=== PATIENT | male | born 1935 | race Caucasian/White ===

== ENCOUNTER 2016-11-17 20:54 | Inpatient (IN) ==
--- NOTE | 2016-11-17 21:57 | Emergency Department Note ---
Marcus Ny Rolonda, am scribing for, and in the presence of, Lexa Osborne MD 21:55. Dylon Ny Charles R, MD, personally performed the services described in this documentation, ascribed by Cindy Velazquez in my presence, and it is both accurate and complete . Arrival - Arrival Chief Complaint: Extremity Problem ED Nursing Triage Note: Pt arrives via ems from home with complaints of right knee swelling and pain that started Monday. Pt denies any injury. Knee is warm to touch and pt is unable to bear weight on ext. States that Dr. Cordoba started him on Bactrim but he has not seen him. + pulse noted to ext. + sensory/motor function. + 4 pitting edema bilat. ext. Mode of Arrival: Stretcher Limitations: No Limitations Source: Patient, Old Records Reviewed, RN Notes Reviewed Time Seen by Provider: 11/17/16 21:35 - History of Present Illness HPI Narrative: Pt is a 81 y/o male who presents to the ED via EMS for further evaluation of right knee pain with an onset of x4 days. Pt has a PMHx of cardiovascular problems. He states that he normally sleeps on his right side and when he awakened Monday morning he had right knee pain. He states that he tried to walk and was unsuccessful and had to pick his leg up with his hand due to his leg feeling heavy. Pt states that the bruising began this afternoon. He denies injury to the knee but confirms that he is taking Coumadin and Bactrim. No other complaint/pain in ED. Onset (ago): day(s) Consistency: constant Severity: mild, moderate Severity scale (1-10): 5 Allergies/Adverse Reactions: Allergies Allergy/AdvReac Type Severity Reaction Status Date / Time prednisone Allergy Mild hallucinati Verified 10/27/14 12:06 on Home Medications: Home Medications Medication Instructions Recorded Confirmed Type Ascorbic Acid Tab [Vitamin C Tab] 1,000 mg PO DAILY 10/27/14 11/17/16 History Diltiazem HCl [Cardizem LA] 360 mg PO DAILY 10/27/14 11/17/16 History Magnesium Oxide [Magnesium] 400 mg PO DAILY 10/27/14 11/17/16 History Metoprolol Succinate Xl [Toprol Xl] 12.5 mg PO DAILY 10/27/14 11/17/16 History Multivitamin [One Daily] 1 each PO DAILY 10/27/14 11/17/16 History Triamterene/Hydrochlorothiazid 1 each PO DAILY 10/27/14 11/17/16 History [Triamterene-Hctz 37.5-25 mg Cp] Warfarin [Coumadin] 5 mg PO DIRECTED 10/27/14 11/17/16 History Cetirizine HCl [ZyrTEC Cap] 10 mg PO DAILY 11/12/14 11/17/16 History Warfarin [Coumadin] 2.5 mg PO DIRECTED 11/12/14 11/17/16 History HYDROcodone/ACETAMIN 7.5-325 1 - 2 tablet PO Q4H PRN #60 tablet 11/16/14 Rx [[place] 7.5-325] Review of System - Review of System 12 point system: reviewed and no additional remarkable complaints except as stated - Review of System Constitutional: Absent: chills Eyes: Absent: discharge Head/Ears/Nose/Throat: Absent: earache Respiratory: Absent: cough Cardiovascular: Absent: chest pain Gastrointestinal: Absent: nausea Genitourinary male: Absent: dysuria Musculoskeletal: Present: joint swelling (right knee), leg pain (right leg and knee). Absent: arm pain Skin: Absent: rash Neurological: Absent: headache Psychiatric: Absent: anxiety Endocrine: Absent: cold intolerance Hematological/Lymphatic: Absent: easy bleeding Allergic/Immunologic: Absent: facial swelling Medical,Surgical,& Family Hx - Medical History Cardio: History of: Cardiac Dysrhythmia (A FIB), Hypertension, Valvular Heart Disease, Cardiovascular Problems (AORTIC VALVE REPLACEMENT) Psychological: History of: Psychiatric Problems (COLOSTOPHOBIA) Neurology: No history of: Seizures HEENT: History of: Eye Problem (READING GLASSES) Rheumatology: History of;: Rheumatoid Arthritis (HANDS AND LEFT ANKLE) Genitourinary: History of: Prostate Problems (CANCER) Gastrointestinal: History of: GERD, Polyps (3 REMOVED) Musculoskeletal: History of: Amputation, Back/Neck Problems Hematology: History of: Bleeding Problems (BRUISE EASILY AND BLEEDS EASY BECAUSE OF COUMADIN) Other: History of: Anesthesia Reactions (NAUSEA AND VOMITING) - Surgical History Cardiac Surgeries: Sugical HX of: Cardiac Catheterization HEENT Surgeries: Surgical HX of: Tonsilectomy & Adenoidectomy Abdominal Surgeries: Surgical HX of: Abdominal Surgery, Appendectomy, Colonoscopy, Hernia Repair (RIGHT HERNIA) Reproductive Surgeries: Surgical HX of;: Genitourinary Surgery, Prostate Surgery (CANCER) Orthopedic Surgeries: Surgical HX of;: Orthopedic Surgery (RIGHT ANKLE SX, RIGHT ELBOW SX), Total Knee Replacement (BILATERAL LEFT 2013 RIGHT 2014) - Family History Family History: Reports;: Family Heart Disease (2 BROTHERS FATHER MOTHER), Family Hypertension (FATHER, 2 BROTHERS) - Social History Smoking Status: Former smoker Frequency of Alcohol Use: Frequently Type of Drug Use: None Exam Vital Signs: Vital Signs Temperature 99.7 F H 11/17/16 20:54 Pulse Rate 81 11/17/16 22:55 Respiratory Rate 15 11/17/16 22:55 Blood Pressure 156/77 11/17/16 22:55 O2 Sat by Pulse Oximetry 99 11/17/16 22:55 - General General appearance: alert, in no apparent distress - Head Head exam: Present: atraumatic, normocephalic - Eye Eye exam: Present: PERRL, EOMI - ENT ENT exam: Present: mucous membranes moist. Absent: mucous membranes dry - Neck Neck exam: Present: full ROM. Absent: tenderness - Chest Chest inspection: Present: symmetric chest wall rise. Absent: tenderness - Respiratory Respiratory exam: Present: rhonchi (bilateral). Absent: normal lung sounds bilaterally - Cardiovascular Cardiovascular exam: Present: regular rate, normal rhythm, normal heart sounds, clicks (4/6 aortic valve). Absent: bradycardia - Abdominal Exam Abdominal exam: Present: soft, normal bowel sounds. Absent: tenderness - Extremities Exam Extremities exam: Present: tenderness. Absent: normal inspection (RLE swollen, ecchymosis, and bruising; hematoma; warm to touch), full ROM - Expanded Upper Right Upper Extremity Hand exam: Present: full ROM. Absent: normal inspection (neuro deficit in digits), tenderness - Back Exam Back exam: Present: full ROM. Absent: tenderness - Neurological Exam Neurological exam: Present: alert, oriented X3, CN II-XII intact - Psychiatric Psychiatric exam: Present: normal affect, normal mood - Skin Skin exam: Present: warm, dry, intact, normal color. Absent: rash Course - Consultations Consultation #1: Hospitalist will admit patient Time: 23:10 Results - Labs CBC & BMP: 11/17/16 21:56 11/17/16 21:56 Lab Results: I have reviewed the patients labs Labs: Laboratory Tests 11/17/16 21:56 WBC 10.9 RBC 2.90 L Hgb 9.4 L Hct 27.2 L Neut % (Auto) 81.9 H Lymph % (Auto) 7.2 L Neut # (Auto) 8.9 H Lymph # (Auto) 0.8 L Dickey # (Auto) 1.0 H Laboratory Tests 11/17/16 21:56 INR 3.6 PT Patient/Control Mix 37.6 D Disposition Clinical Impression: Chronic anticoagulation, Cellulitis, Lower extremity edema, Hematoma of right lower extremity Case discussed with: patient, patient's family Disposition: Still a Patient Condition: Stable Time of Disposition: 23:11
[2016-11-17 22:08] LABS: Basophils % 0.3 % (0.0-0.8); Eosinophils # 0.1 10*3/uL (0.0-0.87); Eosinophils % 0.6 % (0.00-10.9); Hematocrit 27.2 VOL% (42.0-52.0); Hemoglobin 9.4 GM/DL (14.0-18.0); Immature Granulocytes % 0.8 %; Immature Granulocytes Absolute 0.09 #; Lymphocytes # 0.8 10*3/uL (1.4-4.0); Lymphocytes % 7.2 % (21.2-54.2); Mean Corpuscular HGB Conc 34.6 GM/DL (32-36); Mean Corpuscular Hemoglobin 32 PG (27-34); Mean Corpuscular Volume 93.8 FL (87-102); Monocytes % 9.2 % (1.7-12.7); Neutrophils # 8.9 10*3/uL (1.4-7.4); Neutrophils % 81.9 % (38.7-73.9); Platelet Count 178 T/CUMM (130-400); Red Cell Distribution Width 13.4 % (9.3-17.3); White Blood Count 10.9 T/CUMM (4-12)
[2016-11-17] MEDS ORDERED: SODIUM CHLORIDE 0.9% 100 ML IV ONE (22:20)
[2016-11-17] MEDS ORDERED: ceFAZolin 1,000 MG VIAL ONE (22:20)
[2016-11-17 22:21] LABS: INR 3.6
[2016-11-17 22:22] LABS: PT Patient Result 37.6 SECS
[2016-11-17 22:35] LABS: Albumin 3.3 G/DL (3.4-5.0); Bilirubin,Total 0.9 MG/DL (0.2-1.0); Calcium 8.3 MG/DL (8.5-10.1); Magnesium 2.2 MG/DL (1.8-2.4); Osmolality,Calculated 282.5 MOS/KG (273-304); Potassium 4.2 MMOL/L (3.5-5.1); Total Protein 5.8 G/DL (6.4-8.3); Uric Acid 6.4 MG/DL (3.5-7.2)
[2016-11-17] MEDS ORDERED: ONDANSETRON 4 MG/2 ML VIAL IV PRN (23:39)
[2016-11-17] MEDS ORDERED: VANCOMYCIN INJ 1,000 MG in SODIUM CHLORIDE 0.9% 250 ML IV ONE (23:46)
--- NOTE | 2016-11-17 23:52 | Hospitalist History & Physical ---
<Claudia Palacios - Last Filed: 11/18/16 00:18> Assessment and Plan - Time spent with patient Time spent with patient: Greater than 30 minutes (1) Hematoma of right lower extremity Status: Acute Assessment and plan: Admit to hospitalist services. Consult Ortho. MRI RLE. Hold Coumadin; pharmacy to dose. PT/INR in a.m. Current Visit: Yes (2) Cellulitis Status: Acute Assessment and plan: Start Vancomycin 1 gram IV x 1 dose; then pharmacy to dose. Blood cultures obtained in ED; follow. Repeat CBC in a.m. Current Visit: Yes (3) Anemia Status: Acute Assessment and plan: Asymptomatic and stable for now. Repeat CBC in a.m. Monitor. Current Visit: Yes (4) Hypertension Status: Acute Assessment and plan: Continue home medications. Monitor. Current Visit: No (5) Atrial fibrillation Status: Inactive Assessment and plan: Telemetry. Obtain EKG. Continue home medications except coumadin. Current Visit: No Qualifiers: Qualified Code(s): I48.2 - Chronic atrial fibrillation History of Present Illness Chief complaint: RLE pain/swelling History of present illness: Mr. Jefferson is a 81 year old male with a past medical history of atrial fibrillation, aortic valve replacement on coumadin, hypertension, prostate cancer, rheumatoid arthritis, and GERD who presented to the ED tonight with complaints of pain, swelling, warmth and extending hematoma of the right lower extremity. He reports that he was awakened by pain in the RLE Monday around 03: 00. On Monday, his PCP started him on Bactrim for warmth, swelling, and low- grade temp. The warmth has decreased some, but the pain, swelling has continued to increase and a hematoma began to develop today. He has become unable to bear weight. His INR is usually 2.5-3.5, but when he checked it tonight at 18:00, it was 3.9. In the ED, significant labs include WBC 10.9, H/H 9.4/27.2, Neut% 81.9 , and Lymp % 7.2. US of RLE showed hematoma but no DVT. Currently, he is lying in bed without further complaints. Hospitalist services were consulted, and the patient will be admitted for further evaluation and treatment. Home medications were reviewed and reconciled. This patient is a full code. Home Medications Medication Instructions Recorded Confirmed Type Ascorbic Acid Tab [Vitamin C Tab] 1,000 mg PO DAILY 10/27/14 11/17/16 History Diltiazem HCl [Cardizem LA] 360 mg PO DAILY 10/27/14 11/17/16 History Magnesium Oxide [Magnesium] 400 mg PO DAILY 10/27/14 11/17/16 History Metoprolol Succinate Xl [Toprol Xl] 12.5 mg PO DAILY 10/27/14 11/17/16 History Multivitamin [One Daily] 1 each PO DAILY 10/27/14 11/17/16 History Triamterene/Hydrochlorothiazid 1 each PO DAILY 10/27/14 11/17/16 History [Triamterene-Hctz 37.5-25 mg Cp] Warfarin [Coumadin] 5 mg PO DAILY 10/27/14 11/18/16 History Cetirizine HCl [ZyrTEC Cap] 10 mg PO DAILY 11/12/14 11/17/16 History HYDROcodone/ACETAMIN 7.5-325 1 - 2 tablet PO Q4H PRN #60 tablet 11/16/14 Rx [[place] 7.5-325] Allergies Allergy/AdvReac Type Severity Reaction Status Date / Time prednisone Allergy Mild hallucinati Verified 10/27/14 12:06 on Medical,Surgical,& Family Hx - Medical History Cardio: History of: Cardiac Dysrhythmia (A FIB), Hypertension, Valvular Heart Disease, Cardiovascular Problems (AORTIC VALVE REPLACEMENT) Psychological: History of: Psychiatric Problems (COLOSTOPHOBIA) HEENT: History of: Eye Problem (READING GLASSES) Rheumatology: History of;: Rheumatoid Arthritis (HANDS AND LEFT ANKLE) Genitourinary: History of: Prostate Problems (CANCER) Gastrointestinal: History of: GERD, Polyps (3 REMOVED) Musculoskeletal: History of: Amputation, Back/Neck Problems Hematology: History of: Bleeding Problems (BRUISE EASILY AND BLEEDS EASY BECAUSE OF COUMADIN) Other: History of: Anesthesia Reactions (NAUSEA AND VOMITING) - Surgical History Cardiac Surgeries: Sugical HX of: Cardiac Catheterization HEENT Surgeries: Surgical HX of: Tonsilectomy & Adenoidectomy Abdominal Surgeries: Surgical HX of: Abdominal Surgery, Appendectomy, Colonoscopy, Hernia Repair (RIGHT HERNIA) Reproductive Surgeries: Surgical HX of;: Genitourinary Surgery, Prostate Surgery (CANCER) Orthopedic Surgeries: Surgical HX of;: Orthopedic Surgery (RIGHT ANKLE SX, RIGHT ELBOW SX), Total Knee Replacement (BILATERAL LEFT 2013 RIGHT 2014) - Family History Family History: Reports;: Family Heart Disease (2 BROTHERS FATHER MOTHER), Family Hypertension (FATHER, 2 BROTHERS) - Social History Smoking Status: Former smoker Have you smoked in the last 12 months: No Frequency of Alcohol Use: None Type of Drug Use: None Marital Status: Lives With:: Spouse Functional capacity: independent ambulation 12 point system: reviewed and no additional remarkable complaints except as stated - Constitutional Constitutional: Absent: chills, fever(s), weakness - EENT Eyes: Absent: blurry vision, diplopia, loss of vision Ears: Absent: decreased hearing, ear discharge, ear pain Nose, mouth and throat: Absent: headache(s), nasal congestion, sore throat - Cardiovascular Cardiovascular: Present: edema (RLE ). Absent: chest pain at rest, chest pain with activity, dyspnea, lightheadedness, orthopnea, palpitations - Respiratory Respiratory: Absent: cough, dyspnea, dyspnea on exertion - Gastrointestinal Gastrointestinal: Absent: abdominal pain, constipation, diarrhea, nausea, vomiting - Genitourinary Genitourinary: Absent: dysuria, hematuria, urinary frequency - Musculoskeletal Musculoskeletal: Present: arthralgias (right knee), joint swelling (right knee ) . Absent: muscle weakness, myalgias - Neurological Neurological: Absent: confusion, dizziness, numbness, paresthesias, syncope - Psychiatric Psychiatric: Absent: anxiety, depression - Endocrine Endocrine: Absent: cold intolerance, polydipsia, polyphagia, polyuria - Hematologic/Lymphatic Hematologic/Lymphatic: Present: easy bleeding, easy bruising Exam - Constitutional Vitals: Period Temp Pulse Resp BP Sys/Emerson Pulse Ox Last 24 Hr 99.7 F-99.7 F 79-81 15-18 156-168/77-89 99-99 Exam: Constitutional System: Afebrile. Awake, alert, and oriented. No distress. No tremulousness. Head: Normocephalic, atraumatic. Ears, Nose and Throat System: No pain or tenderness. No epistaxis or discharge Eyes System: Pupils equal, round, and reactive. Extraocular muscles intact. Neck: Supple, without adenopathy, No jugular venous distention. No thyromegaly, neck mass, or prior surgery apparent. Respiratory System: Chest clear to auscultation. Cardiovascular System: Heart with regular rate and irregular rhythm. No murmur. Aortic valve click noted. GI System: Abdomen soft, nontender. Normo active bowel sounds present. Musculoskeletal System: RLE with 4+ edema and hematoma extending from mid thigh to calf. Melanotic discoloration of bilateral lower calves/shins. Full distal pulses. Normal capillary refill. Neurological System: No discernable sensory deficit. No aphasia Psychiatric System: Conversation is rational Results - Labs CBC & BMP: 11/17/16 21:56 11/17/16 21:56 Lab Results: I have reviewed the past 24 hour labs Labs: WBC 10.9 RBC 2.9 Hgb 9.4 Hct 27.2 Plt 178 Neut % 81.9 Lymph % 7.2 INR 3.6 PT 37.6 Na 139 K 4.2 Cl 106 BUN 26 Creatinine 1.2 Glucose 117 Lactic acid 1.6 Uric acid 6.4 Ca 8.3 Bilirubin 0.90 AST 17 ALT 15 Alkaline phosphatase 72 CRP 7.23 Quality Measures - VTE Contraindication to Pharmacological VTE Prophylaxis: Active Bleeding <Filemon Chu - Last Filed: 11/18/16 01:51> History of Present Illness History of present illness: Mr. Jefferson is a 81 year old male Exam - Constitutional Vitals: Period Temp Pulse Resp BP Sys/Emerson Pulse Ox Last 24 Hr 98.9 F-99.7 F 78-81 15-18 138-193/77-89 96-99 Results - Labs CBC & BMP: 11/17/16 21:56 11/17/16 21:56 - Impressions Patient seen and examined with LARRY Palacios. I have reviewed the H&P by LARRY Palacios, and I agree with the documentation. Briefly, patient is a 81 yo male with PMH significant for aortic valve replacement, chronic anti coagulation, paroxysmal a-fib, rheumatoid arthritis, HTN, AL, prostate cancer, GERD, and knee OA s/p bilateral knee replacements. He is being admitted for worsening right knee swelling, pain, and extending ecchymosis. He denies any trauma. He noted some fevers which have resolved. Vitals reviewed. Cardiopulmonary exam significant for unlabored respirations, clear anterior lung sounds, and heart is regular with a crisp valvular click. He has chronic venous stasis changes with bilateral lower extremity edema. Right knee is swollen, tender to touch, and warm. Right thigh is significant for ecchymosis mostly in medial and posterolateral areas. Labs/imaging reviewed. Active Issues: 1. Right knee swelling with thigh ecchymosis: concerning for hemarthrosis and well as septic joint. 2. Supratherapeutic INR: he states that his goal INR is 2.5-3.5 given his aortic valve replacement; INR is 3.6 and likely influenced by recent Bactrim use given by his doctor for knee infection. 3. Comorbid conditions: aortic valve replacement, p-afib, HTN, GERD Plan: MRI of RLE; consult ortho; vancomycin; hold Coumadin and monitor INR; obtain EKG, restart home medications as appropriate; medications reconciled; no DVT prophylaxis since supratherapeutic on Coumadin and concerned about bleeding. The plan of care may be modified as more information becomes available. CODE: FULL
[2016-11-18] MEDS: ACETAMINOPHEN 325 MG TABLET PO PRN ×2 (01:51→16:18)
[2016-11-18] MEDS ORDERED: VANCOMYCIN INJ 1,500 MG in SODIUM CHLORIDE 0.9% 500 ML IV SCH ×2 (03:00→15:00)
[2016-11-18] MEDS: LORazepam 2 MG/1 ML VIAL IV PRN ×2 (03:24→21:26)
[2016-11-18 03:36] LABS: Basophils % 0.4 % (0.0-0.8); Eosinophils # 0.2 10*3/uL (0.0-0.87); Eosinophils % 2.2 % (0.00-10.9); Hematocrit 23.8 VOL% (42.0-52.0); Hemoglobin 8.3 GM/DL (14.0-18.0); Immature Granulocytes % 0.7 %; Immature Granulocytes Absolute 0.06 #; Lymphocytes # 1.4 10*3/uL (1.4-4.0); Lymphocytes % 15.8 % (21.2-54.2); Mean Corpuscular HGB Conc 34.9 GM/DL (32-36); Mean Corpuscular Hemoglobin 33 PG (27-34); Mean Corpuscular Volume 94.1 FL (87-102); Mean Platelet Volume 11.6 FL (9.6-12.0); Monocytes % 10.7 % (1.7-12.7); Neutrophils # 6.3 10*3/uL (1.4-7.4); Neutrophils % 70.2 % (38.7-73.9); Platelet Count 174 T/CUMM (130-400); Red Blood Count 2.53 MC/CUMM (3.8-5.5); Red Cell Distribution Width 13.5 % (9.3-17.3); White Blood Count 8.9 T/CUMM (4-12)
[2016-11-18 03:50] LABS: INR 3.5
[2016-11-18 03:52] LABS: PT Patient Result 36.8 SECS
[2016-11-18 04:13] LABS: Calcium 8.5 MG/DL (8.5-10.1); Osmolality,Calculated 284.3 MOS/KG (273-304); Potassium 3.8 MMOL/L (3.5-5.1)
--- NOTE | 2016-11-18 06:40 | Ultrasound Report ---
US venous doppler LE RT Indication: Pain and swelling. Comparison: None. Technique: Grayscale, spectral, and color Doppler interrogation of the right lower extremity veins was performed. Augmentation and compression was performed. Findings: Grayscale, color Doppler, and pulsed Doppler evaluation of the veins of the right lower extremity demonstrates no evidence of deep venous thrombosis. There is a fluid collection within the soft tissues of the medial right knee which may reflect Rodriguez's cyst or other fluid collection such as hematoma. This measures up to 6.0 x 1.3 x 2.3 cm. IMPRESSION: No evidence of deep venous thrombosis in right lower extremity.There is a fluid collection within the soft tissues of the medial right knee which may reflect Rodriguez's cyst or other fluid collection such as hematoma. This measures up to 6.0 x 1.3 x 2.3 cm. PROCEDURE INTERPRETED AT [facility] DEPARTMENT OF RADIOLOGY Final Report Signed by: Dr Jack Constantino
--- NOTE | 2016-11-18 08:32 | XRay Report ---
History: Pain and swelling right leg Date: 11/17/2016 Study: Right knee 2 views Comparison exam: November 12, 2014 There is no fracture, dislocation, or focal destructive osseous abnormality. The patient is status post previous right knee replacement. The right knee prosthesis is well conjugated. There is a large suprapatellar joint effusion. There is soft tissue swelling about the knee. Impression: No acute bony abnormality. Previous right knee replacement. Joint effusion PROCEDURE INTERPRETED AT [facility] DEPARTMENT OF RADIOLOGY Final Report Signed by: Dr. Deepika Rhodes
--- NOTE | 2016-11-18 09:34 | Orthopedic Consult Note ---
History of Present Illness Chief complaint: Right knee bruising, pain and swelling History of present illness: Mr. Jefferson is a 81 year old male who has had multiple bilateral knee surgeries. He has had a right knee revision for patella fracture and displaced patellar component [place] [address] Edge. He is also recently has had a left knee revision by Dr. Mejia in June of this year. He states that this past Monday evening his knee became acutely swollen and painful. Prior to his knee becoming symptomatic, the patient traveled in the car from [place] and watch football all day Monday. He denies any injury. He developed bruising and warmth earlier this week. He was placed on Bactrim by Dr. Cordoba. The patient is chronically anticoagulated on Coumadin and checks his PT and INR at home. He states that he came to the emergency room when his INR hit 3.9. The patient denies any fevers or chills. Home Medications Medication Instructions Recorded Confirmed Type Ascorbic Acid Tab [Vitamin C Tab] 1,000 mg PO DAILY 10/27/14 11/17/16 History Diltiazem HCl [Cardizem LA] 360 mg PO DAILY 10/27/14 11/17/16 History Magnesium Oxide [Magnesium] 400 mg PO DAILY 10/27/14 11/17/16 History Metoprolol Succinate Xl [Toprol Xl] 12.5 mg PO DAILY 10/27/14 11/17/16 History Multivitamin [One Daily] 1 each PO DAILY 10/27/14 11/17/16 History Triamterene/Hydrochlorothiazid 1 each PO DAILY 10/27/14 11/17/16 History [Triamterene-Hctz 37.5-25 mg Cp] Warfarin [Coumadin] 5 mg PO DAILY 10/27/14 11/18/16 History Cetirizine HCl [ZyrTEC Cap] 10 mg PO DAILY 11/12/14 11/17/16 History HYDROcodone/ACETAMIN 7.5-325 1 - 2 tablet PO Q4H PRN #60 tablet 11/16/14 Rx [[employer] 7.5-325] Allergies Allergy/AdvReac Type Severity Reaction Status Date / Time prednisone Allergy Mild hallucinati Verified 10/27/14 12:06 on 12 point system: reviewed and no additional remarkable complaints except as stated Medical,Surgical,& Family Hx - Medical History Cardio: History of: Cardiac Dysrhythmia (A FIB), Hypertension, Valvular Heart Disease, Cardiovascular Problems (AORTIC VALVE REPLACEMENT) Psychological: History of: Psychiatric Problems (COLOSTOPHOBIA) Neurology: No history of: Seizures HEENT: History of: Eye Problem (READING GLASSES) Rheumatology: History of;: Rheumatoid Arthritis (HANDS AND LEFT ANKLE) Genitourinary: History of: Prostate Problems (CANCER) Gastrointestinal: History of: GERD, Polyps (3 REMOVED) Musculoskeletal: History of: Amputation, Back/Neck Problems Hematology: History of: Bleeding Problems (BRUISE EASILY AND BLEEDS EASY BECAUSE OF COUMADIN) Other: History of: Anesthesia Reactions (NAUSEA AND VOMITING) - Surgical History Cardiac Surgeries: Sugical HX of: Cardiac Catheterization HEENT Surgeries: Surgical HX of: Tonsilectomy & Adenoidectomy Abdominal Surgeries: Surgical HX of: Abdominal Surgery, Appendectomy, Colonoscopy, Hernia Repair (RIGHT HERNIA) Reproductive Surgeries: Surgical HX of;: Genitourinary Surgery, Prostate Surgery (CANCER) Orthopedic Surgeries: Surgical HX of;: Orthopedic Surgery (RIGHT ANKLE SX, RIGHT ELBOW SX), Total Knee Replacement (BILATERAL LEFT 2013 RIGHT 2014) - Family History Family History: Reports;: Family Heart Disease (2 BROTHERS FATHER MOTHER), Family Hypertension (FATHER, 2 BROTHERS) - Social History Smoking Status: Former smoker Frequency of Alcohol Use: Frequently Type of Drug Use: None Exam - Constitutional Vitals: Period Temp Pulse Resp BP Sys/Emerson Pulse Ox Last 24 Hr 97.2 F-99.7 F 73-87 15-18 138-193/65-89 95-99 Exam: Alert and oriented Exam right knee shows multiple well-healed incisions over the anterior and anterior medial aspect of his knee. The patient has a moderate effusion and is able to range his motion from 3-45 actively. His knee is grossly stable. He can perform straight leg raise. The patient has hemosiderin staining involving the distal two thirds of his leg. His leg is moderately swollen. The patient has aging ecchymosis over the posterior and posterior medial aspect of his thigh and knee. Radiographs knee show a well fixed total knee replacement with multiple soft tissue calcifications within his extensor mechanism. There is no evidence of loosening or wear. His labs were reviewed. The patient initial INR was 3.7 and his follow-up INR is 3.5. The patient's hemoglobin this morning is 8.3 and is dropped from his admission hemoglobin. He does not have a white count. He does have an elevated C-reactive protein. Impression: Spontaneous right knee hemarthrosis Plan: Given his current INR, I recommended application of an James wrap for compression. I do not recommend any intervention. I have ordered physical therapy to start gait training with a walker for protection. I canceled his MRI , since there is no benefit. I do not see any evidence of cellulitis and I advise stopping his antibiotics. Results - Labs CBC & BMP: 11/18/16 02:28 11/18/16 02:28 Assessment and Plan (1) Hemarthrosis involving knee joint Status: Acute Current Visit: Yes Qualifiers: Laterality: right Qualified Code(s): M25.061 - Hemarthrosis, right knee
[2016-11-18] MEDS: METOPROLOL SUCCINATE XL 25 MG TABLET PO SCH (09:42)
[2016-11-18] MEDS: MAGNESIUM OXIDE 400 MG TABLET PO SCH (09:42)
[2016-11-18] MEDS: FOLIC ACID 1 MG TABLET PO SCH (09:42)
[2016-11-18] MEDS: THIAMINE 100 MG TABLET PO SCH (09:42)
[2016-11-18] MEDS: MULTIVITAMIN (CENTRUM) TABLET PO SCH (09:42)
[2016-11-18] MEDS: TRIAMTERENE/HCTZ 37.5-25 MG CAPSULE PO SCH (09:42)
[2016-11-18] MEDS: ASCORBIC ACID 500 MG TABLET PO SCH (09:42)
[2016-11-18] MEDS: DILTIAZEM CD 180 MG CAPSULE PO SCH (09:43)
[2016-11-18] MEDS: CETIRIZINE 10 MG TABLET PO SCH (09:45)
--- NOTE | 2016-11-18 13:31 | Magnetic Resonance Report ---
History: Hematoma right lower extremity Date: 11/18/2016 Study: MRI right thigh without IV contrast Comparison exam: No previous MRI thigh available The right thigh was imaged in 3 planes on the 1.5 Eda magnet without IV contrast, to include T1, T2, and STIR sequences. The hip and right knee are not completely included on the study. The patient reportedly asked one of the support personnel about knee ligament integrity-- this exam was not tailored to evaluate ligament integrity at the knee level. However, there is a very large amount of metallic artifact at the visualized knee level from the patient's prosthesis; even a dedicated knee MRI would likely have significant limitation because of this artifact. There is no fracture or abnormal marrow edema within the femur. There is no abnormal periosteal elevation. There is severe global atrophy of the thigh musculature, with some relative sparing of the long head of the biceps and semitendinosus muscles. There is a 14 x 24 x 37 mm intramuscular hematoma within the vastus intermedius muscle. There is nonspecific diffuse edema of the subcutaneous tissues without je abscess where seen. There is a moderate suprapatellar knee joint effusion. Impression: 36 mm intramuscular hematoma within the vastus intermedius muscle at the level of the distal femoral diametaphysis Knee joint effusion Nonspecific diffuse edema in the subcutaneous fat of the right thigh Diffuse regional muscle atrophy PROCEDURE INTERPRETED AT [facility] DEPARTMENT OF RADIOLOGY Final Report Signed by: Dr. Deepika Rhodes
--- NOTE | 2016-11-18 15:51 | Hospitalist Progress Note ---
Assessment and Plan - Time spent with patient Time spent with patient: Less than 30 minutes (1) Hypertension Status: Acute Assessment and plan: 81-year-old white male with history of atrial fibrillation and aortic valve replacement on chronic anticoagulation with Coumadin, prostate cancer, hypertension, rheumatoid arthritis, and GERD admitted by the hospitalist on 11/17 with pain, swelling, warmth and hematoma on the right lower extremity. Ultrasound is negative for DVT with fluid collection within the soft tissues of the medial right knee that measures 6 x 1.3 x 2.3 cm. MRI of the right lower extremity was ordered and it showed a 36 mm intramuscular hematoma within the vastus intermedius muscle at the level of the distal femoral diametaphysis, knee joint effusion and edema in the subcutaneous fat of the right thigh. Dr. Giles from orthopedics was consulted and recommended application of James wrap for compression and physical therapy for gait training with a walker for protection. Patient's Coumadin has been held and his INR this morning is 3.5. His H&H had mild drop to 8.3/23.8. Will continue to monitor his H&H and INR. When H&H is stable and INR is within therapeutic range patient can be discharged home. He may need home health physical therapy. The remainder of his labs are relatively normal. Dr. Santos will see and examine patient and further recommendations to follow. Current Visit: No (2) Chronic anticoagulation Status: Acute Current Visit: Yes (3) Hematoma of right lower extremity Status: Acute Current Visit: Yes (4) Anemia Status: Acute Current Visit: Yes (5) H/O aortic valve replacement Status: Chronic Current Visit: No Hospitalist: Subjective Interval history: Patient feels okay but he still having some pain in his right knee and lower extremity that is making it difficult to walk. Exam - Constitutional Vitals: Period Temp Pulse Resp BP Sys/Emerson Pulse Ox Last 24 Hr 97.2 F-99.7 F 73-87 15-18 138-193/65-89 95-99 Exam: 81-year-old white male, no acute distress, alert and oriented Chest clear CV regular rate rhythm Abdomen soft and nontender Extremities right lower leg with edema throughout, tenderness especially around anterior posterior knee, decreased range of motion Results - Labs CBC & BMP: 11/18/16 02:28 11/18/16 02:28 Lab Results: I have reviewed the past 24 hour labs - Diagnostic Findings Procedure: MRI: report reviewed by me (MRI of the lower extremity shows 36 mm intramuscular hematoma within the vastus intermedius muscle at the level of the distal femoral to have metaphysis with knee joint effusion. Nonspecific diffuse edema in the subcutaneous fat of the right thigh.), Ultrasound: report reviewed by me (Right lower extremity venous Doppler shows no evidence of DVT. Fluid collection within the soft tissues of the medial right knee that may reflect hematoma that measures up to 6 x 1.3 x 2.3 cm), X-ray: report reviewed by me (Knee x-ray shows no acute abnormality, previous right knee replacement. Joint effusion) Quality Measures - VTE Contraindication to Pharmacological VTE Prophylaxis: Active Bleeding
[2016-11-18] MEDS ORDERED: WARFARIN 5 MG TABLET PO SCH (18:00)
[2016-11-19 05:26] LABS: Hemoglobin 8.4 GM/DL (14.0-18.0)
[2016-11-19 05:41] LABS: PT Patient Result 20.4 SECS
[2016-11-19] MEDS ORDERED: WARFARIN 5 MG TABLET PO SCH ×2 (08:26→18:00)
--- NOTE | 2016-11-19 08:32 | Discharge Summary ---
<Betty Bynum - Last Filed: 11/19/16 08:28> Hospital Course - Hospital Course Hospital Course: 81-year-old white male with history of A. fib and aortic valve replacement on chronic anticoagulation with Coumadin, prostate cancer, hypertension, RA, and GERD admitted by the hospitalist on 11/17/2016 with pain, swelling, warmth and hematoma on the right lower extremity. Ultrasound was negative for DVT but showed a fluid collection within the soft tissues of the medial right knee that measured 6 x 1.3 x 2.3 cm. MRI of the right lower extremity showed a 36 mm intramuscular hematoma within the vastus intermedius muscle at the level of the distal femoral diametaphysis, knee joint effusion and edema in the subcutaneous fat of the right thigh. Patient's Coumadin was held and Dr. Giles from orthopedics was consulted. He recommended application of James wrap for compression and physical therapy for gait training with a walker for protection. His INR this morning has dropped down to 2 and his Coumadin was restarted at his home dose. His H&H is on the rise and stable. He is having minimal pain in the knee and he is able to ambulate using a walker without difficulty. He will follow-up with Dr. Cordoba his PCP in 1 week with an INR. Patient is requesting no follow-up with Dr. Giles. Will let Dr. Cordoba handle referral to orthopedics if needed. Patient was instructed if he has increased warmth or swelling in the right knee, fever or chills he is to return to the emergency room. There is no need for antibiotics at this time and patient states he does not need any pain medications. Complete discharge instructions were given. Care coordination, chart review, and completed discharge paperwork took approximately 38 minutes. I evaluated this patient and completed an independent history and physical examination. I coordinated care with JACKI Dailey PA-C. I agree with the documentation that she provides above. - Time spent with patient Time with patient DS: Greater than 30 minutes Diagnosis - Discharge Diagnosis (1) Hypertension Status: Chronic (2) Chronic anticoagulation Status: Chronic (3) Hematoma of right lower extremity Status: Acute (4) Anemia Status: Chronic (5) H/O aortic valve replacement Status: Chronic Specialty Discharge - Follow Up or Referrals Follow up with: Maurice Cordoba DO [Primary Care Provider] - 1 Week (With PT/INR) Discharge Plan - Discharge Data Disposition: Disch To Home/Self Care Discharge Diet: heart healthy Activity: as per physical therapy Contact your physician if you experience:: fever over 101, Redness or swelling - Discharge Medications Continue Magnesium Oxide [Magnesium] 400 mg PO DAILY Metoprolol Succinate Xl [Toprol Xl] 12.5 mg PO DAILY Multivitamin [One Daily] 1 each PO DAILY Ascorbic Acid Tab [Vitamin C Tab] 1,000 mg PO DAILY Warfarin [Coumadin] 5 mg PO DAILY Triamterene/Hydrochlorothiazid [Triamterene-Hctz 37.5-25 mg Cp] 1 each PO DAILY Diltiazem HCl [Cardizem LA] 360 mg PO DAILY Cetirizine HCl [ZyrTEC Cap] 10 mg PO DAILY HYDROcodone/ACETAMIN 7.5-325 [Anderson 7.5-325] 1 - 2 tablet PO Q4H PRN #60 tablet PRN Reason: Pain Moderate (4-7) - Follow Up or Referral Follow Up: Maurice Cordoba DO [Primary Care Provider] - 1 Week (With PT/INR) - Forms/Instructions Exam - Constitutional Vitals: Period Temp Pulse Resp BP Sys/Emerson Pulse Ox Last 24 Hr 97.2 F-99.4 F 69-82 16-20 131-148/60-65 95-98 Exam: 81-year-old white male, no acute distress, alert and oriented Chest clear CV irregularly irregular, abdomen obese, nontender Extremities right lower extremity with edema and warmth around right knee with chronic discoloration, compression wrap intact Discharge Results Procedures and tests throughout hospitalization: Pending Orders 11/17/16 21:59 Blood Culture Stat Labs on day of discharge: Labs from last 24 hours 11/19/16 11/19/16 04:43 04:43 Hgb 8.4 L Hct 25.0 L INR 2.0 PT Patient/Control Mix 20.4 Preliminary micro results at discharge 11/17/16 21:59 Blood Culture - Preliminary Blood No growth at 1 day 11/17/16 21:56 Blood Culture - Preliminary Blood No growth at 1 day DS: Provider Date of admission: 11/17/16 23:36 Primary care physician: Maurice Cordoba DO Attending physician on admission: Trace Santos MD Consults: 11/17/16 23:39 Consult to Physician [CONS] Routine Comment: Consulting Provider: Moose Giles Jr. Person Notified: Fanny Date Notified: 11/18/16 Time Notified: 09:40 11/17/16 23:47 Consult to Pharmacy [CONS] Routine Reason for Pharmacy Consult: Dose/Manage Vancomycin 11/18/16 00:21 Consult to Pharmacy [CONS] Routine Reason for Pharmacy Consult: Other Comment: Coumadin management 11/18/16 09:28 Consult to Physical Therapy [CONS] Routine Reason for Physical Therapy: Evaluate and Treat Gait Training Consult Comment: wbat with walker. Discharging clinician: JENNIFER Raymond Expected date of discharge: 11/19/16 <Wendie Qureshi - Last Filed: 11/19/16 15:29> Hospital Course - Time spent with patient Time with patient DS: Greater than 30 minutes (Total discharge time for this patient, including [id number] time, clinical documentation, medication reconciliation, and discharge planning was 38 minutes.) Diagnosis - Discharge Diagnosis (1) Hemarthrosis involving knee joint Status: Acute (2) Hematoma of right lower extremity Status: Acute (3) Chronic anticoagulation Status: Chronic (4) H/O aortic valve replacement Status: Chronic (5) Hypertension Status: Chronic (6) Atrial fibrillation Status: Chronic Discharge Plan - Discharge Data Condition at Discharge: Stable
[2016-11-19 08:33] VITALS: BP 148/65
[2016-11-19] MEDS: ASCORBIC ACID 500 MG TABLET PO SCH (08:36)
[2016-11-19] MEDS: THIAMINE 100 MG TABLET PO SCH (08:36)
[2016-11-19] MEDS: DILTIAZEM CD 180 MG CAPSULE PO SCH (08:36)
[2016-11-19] MEDS: MULTIVITAMIN (CENTRUM) TABLET PO SCH (08:36)
[2016-11-19] MEDS: MAGNESIUM OXIDE 400 MG TABLET PO SCH (08:36)
[2016-11-19] MEDS: TRIAMTERENE/HCTZ 37.5-25 MG CAPSULE PO SCH (08:37)
[2016-11-19] MEDS: METOPROLOL SUCCINATE XL 25 MG TABLET PO SCH (08:37)
[2016-11-19] MEDS: FOLIC ACID 1 MG TABLET PO SCH (08:37)
[2016-11-19] MEDS: CETIRIZINE 10 MG TABLET PO SCH (08:37)
--- NOTE | 2016-11-19 08:47 | Orthopedic Progress Note ---
Exam - Constitutional Vitals: Period Temp Pulse Resp BP Sys/Emerson Pulse Ox Last 24 Hr 97.2 F-99.4 F 69-82 16-20 131-151/60-68 95-98 Exam: Patient with James wrap from toes to mid thigh. No new complaints of pain or swelling today. INR 2.0 today. Patient to be discharged home today with follow -up in clinic if further problems occur from his spontaneous hemarthrosis. He moves his toes has sensation to touch has a palpable dorsalis pedis artery on the right lower extremity. Results - Labs CBC & BMP: 11/19/16 04:43 11/18/16 02:28 Quality Measures - VTE Contraindication to Pharmacological VTE Prophylaxis: Active Bleeding Specialty Discharge - Follow Up or Referrals Follow up with: Maurice Cordoba DO [Primary Care Provider] - 1 Week (With PT/INR)
== END 2016-11-19 10:17 | disposition home or self-care (01) | DRG 554 ==
LOC: EDUNIT# → EDBD → N.ED 20:54 → SUATTDRO 23:36 → N.EDINP 23:36 → N.TELES 23:59
PROVIDERS: ADMIT Hospitalist; ATTEND Family Medicine

== ENCOUNTER 2018-02-14 12:54 | Inpatient (IN) ==
[2018-02-14 14:40] LABS: Basophils # 0.1 10*3/uL (0.0-0.2); Basophils % 0.4 % (0.0-0.8); Eosinophils % 0.3 % (0.00-10.9); Hemoglobin 7.7 GM/DL (14.0-18.0); Immature Granulocytes % 2.5 %; Immature Granulocytes Absolute 0.35 #; Mean Corpuscular HGB Conc 32.1 GM/DL (32-36); Mean Corpuscular Hemoglobin 33 PG (27-34); Mean Corpuscular Volume 102.1 FL (87-102); Mean Platelet Volume 10.6 FL (9.6-12.0); Monocytes # 1.4 10*3/uL (0.11-0.8); Monocytes % 9.5 % (1.7-12.7); Neutrophils # 11.5 10*3/uL (1.4-7.4); Neutrophils % 80.3 % (38.7-73.9); Platelet Count 261 T/CUMM (130-400); Red Blood Count 2.35 MC/CUMM (3.8-5.5); Red Cell Distribution Width 14.4 % (9.3-17.3); White Blood Count 14.2 T/CUMM (4-12)
[2018-02-14 14:54] LABS: INR 2.4
[2018-02-14 15:07] LABS: Troponin I < 0.015 NG/ML (0.00-0.045)
[2018-02-14 15:10] LABS: PT Patient Result 25.8 SECS
[2018-02-14 15:11] LABS: Albumin 3.1 G/DL (3.4-5.0); Calcium 8.2 MG/DL (8.5-10.1); Osmolality,Calculated 285.4 MOS/KG (273-304); Potassium 4.1 MMOL/L (3.5-5.1); Total Protein 6.5 G/DL (6.4-8.3)
[2018-02-14] MEDS ORDERED: PANTOPRAZOLE 40 MG TABLET PO ONE (19:02)
[2018-02-14 20:54] LABS: Hematocrit 22.3 VOL% (42.0-52.0); Hemoglobin 6.9 GM/DL (14.0-18.0)
[2018-02-14] MEDS: CEFTAROLINE 600 MG in SODIUM CHLORIDE 0.9% 100 ML IV SCH (21:35)
[2018-02-14] MEDS ORDERED: HYDROmorphone 2 MG/1 ML VIAL IV PRN (23:29)
[2018-02-15] MEDS: ZALEPLON 5 MG CAPSULE PO PRN ×2 (00:02→20:19)
[2018-02-15] MEDS ORDERED: SODIUM CHLORIDE 0.9% 1,000 ML IV PRN (06:41)
[2018-02-15] MEDS ORDERED: FUROSEMIDE 40 MG/4 ML VIAL IV ONE ×2 (06:43→14:00)
[2018-02-15 06:55] LABS: Basophils % 0.4 % (0.0-0.8); Eosinophils # 0.2 10*3/uL (0.0-0.87); Eosinophils % 2.6 % (0.00-10.9); Hematocrit 22.2 VOL% (42.0-52.0); Immature Granulocytes % 2.3 %; Immature Granulocytes Absolute 0.21 #; Lymphocytes # 1.3 10*3/uL (1.4-4.0); Lymphocytes % 14.1 % (21.2-54.2); Mean Corpuscular HGB Conc 31.5 GM/DL (32-36); Mean Corpuscular Hemoglobin 32 PG (27-34); Mean Corpuscular Volume 102.8 FL (87-102); Mean Platelet Volume 10.7 FL (9.6-12.0); Neutrophils # 6.4 10*3/uL (1.4-7.4); Neutrophils % 69.6 % (38.7-73.9); Platelet Count 252 T/CUMM (130-400); Red Blood Count 2.16 MC/CUMM (3.8-5.5); Red Cell Distribution Width 14.4 % (9.3-17.3); White Blood Count 9.2 T/CUMM (4-12)
[2018-02-15 06:56] LABS: INR 2.2
[2018-02-15 06:57] LABS: Albumin 2.7 G/DL (3.4-5.0); Bilirubin,Total 1.6 MG/DL (0.2-1.0); Calcium 8.2 MG/DL (8.5-10.1); Osmolality,Calculated 281.4 MOS/KG (273-304); Potassium 4.3 MMOL/L (3.5-5.1); Total Protein 6.1 G/DL (6.4-8.3)
[2018-02-15] MEDS: MAGNESIUM OXIDE 400 MG TABLET PO SCH (08:31)
[2018-02-15] MEDS: CETIRIZINE 10 MG TABLET PO SCH (08:31)
[2018-02-15] MEDS: PANTOPRAZOLE 40 MG TABLET PO SCH (08:31)
[2018-02-15] MEDS: MULTIVITAMIN (CENTRUM) TABLET PO SCH (08:31)
[2018-02-15] MEDS: DILTIAZEM CD 180 MG CAPSULE PO SCH (08:31)
[2018-02-15] MEDS: METOPROLOL SUCCINATE XL 25 MG TABLET PO SCH (08:32)
[2018-02-15] MEDS: TRIAMTERENE/HCTZ 37.5-25 MG CAPSULE PO SCH (08:33)
[2018-02-15] MEDS: ASCORBIC ACID 500 MG TABLET PO SCH (08:33)
[2018-02-15] MEDS: CEFTAROLINE 600 MG in SODIUM CHLORIDE 0.9% 100 ML IV SCH ×2 (08:38→20:19)
[2018-02-15] MEDS ORDERED: PHYTONADIONE 5 MG/5 ML ORAL.SYR PO ONE (09:48)
[2018-02-15] MEDS: chlordiazePOXIDE 10 MG CAPSULE PO SCH ×2 (13:10→20:19)
[2018-02-15] MEDS: ENOXAPARIN 120 MG/0.8 ML SYRINGE SUBCUT SCH (13:10)
[2018-02-15 16:32] LABS: Apearance,Urine CLEAR (Clear); Bilirubin,Urine Negative (Negative); Blood, Urine Negative (Negative); Glucose,Urine (UA) Negative (Negative); Ketones,Urine Negative (Negative); Nitrite,Urine Negative (Negative); Protein,Urine Negative; RBC,Urine 2 /HPF (0-4); Urine Color Yellow (Yellow); Urine Specific Gravity 1.014 (1.001-1.035); Urine Urobilinogen < 2.0 EU/DL (0.2-1.0); WBC,Urine 1 /HPF (0-6)
[2018-02-16] MEDS: ENOXAPARIN 120 MG/0.8 ML SYRINGE SUBCUT SCH ×2 (00:06→16:46)
[2018-02-16 06:05] LABS: Basophils % 0.4 % (0.0-0.8); Eosinophils # 0.1 10*3/uL (0.0-0.87); Hematocrit 26.4 VOL% (42.0-52.0); Hemoglobin 8.3 GM/DL (14.0-18.0); Immature Granulocytes Absolute 0.22 #; Lymphocytes # 1.4 10*3/uL (1.4-4.0); Lymphocytes % 12.3 % (21.2-54.2); Mean Corpuscular HGB Conc 31.4 GM/DL (32-36); Mean Corpuscular Hemoglobin 31 PG (27-34); Mean Corpuscular Volume 99.6 FL (87-102); Mean Platelet Volume 10.9 FL (9.6-12.0); Monocytes # 1.4 10*3/uL (0.11-0.8); Monocytes % 12.3 % (1.7-12.7); Platelet Count 247 T/CUMM (130-400); Red Blood Count 2.65 MC/CUMM (3.8-5.5); Red Cell Distribution Width 14.7 % (9.3-17.3); White Blood Count 11.1 T/CUMM (4-12)
[2018-02-16 06:14] LABS: INR 1.6; PT Patient Result 17.2 SECS
[2018-02-16 06:24] LABS: Calcium 8.1 MG/DL (8.5-10.1); Osmolality,Calculated 279.5 MOS/KG (273-304); Potassium 3.6 MMOL/L (3.5-5.1)
[2018-02-16] MEDS ORDERED: DIAZEPAM 5 MG TABLET PO ONE (06:30)
[2018-02-16] MEDS ORDERED: fentaNYL 100 MCG/2 ML VIAL IV ONE (08:00)
[2018-02-16] MEDS ORDERED: MIDAZOLAM 2 MG/2 ML VIAL IV ONE (08:00)
[2018-02-16] MEDS ORDERED: HEPARIN/NACL 0.9% 2 UNITS/ML 3,000 ML IV ONE (08:03)
[2018-02-16] MEDS ORDERED: fentaNYL 100 MCG/2 ML VIAL ONE (09:38)
[2018-02-16] MEDS ORDERED: MIDAZOLAM 2 MG/2 ML VIAL ONE (09:38)
[2018-02-16] MEDS: SODIUM CHLORIDE 0.45% 1,000 ML IV SCH (11:01)
[2018-02-16] MEDS: CETIRIZINE 10 MG TABLET PO SCH (13:03)
[2018-02-16] MEDS: chlordiazePOXIDE 10 MG CAPSULE PO SCH ×2 (13:03→20:44)
[2018-02-16] MEDS: MULTIVITAMIN (CENTRUM) TABLET PO SCH (13:03)
[2018-02-16] MEDS: TRIAMTERENE/HCTZ 37.5-25 MG CAPSULE PO SCH (13:03)
[2018-02-16] MEDS: METOPROLOL SUCCINATE XL 25 MG TABLET PO SCH (13:03)
[2018-02-16] MEDS: PANTOPRAZOLE 40 MG TABLET PO SCH (13:03)
[2018-02-16] MEDS: CEFTAROLINE 600 MG in SODIUM CHLORIDE 0.9% 100 ML IV SCH ×2 (13:04→20:44)
[2018-02-16] MEDS: ASCORBIC ACID 500 MG TABLET PO SCH (13:04)
[2018-02-16] MEDS: MAGNESIUM OXIDE 400 MG TABLET PO SCH (13:04)
[2018-02-16] MEDS: DILTIAZEM CD 180 MG CAPSULE PO SCH (13:04)
[2018-02-16] MEDS: WARFARIN 5 MG TABLET PO SCH (20:44)
[2018-02-16] MEDS: ZALEPLON 5 MG CAPSULE PO PRN (20:44)
[2018-02-17] MEDS: ENOXAPARIN 120 MG/0.8 ML SYRINGE SUBCUT SCH ×2 (01:06→12:26)
[2018-02-17 05:27] LABS: INR 1.5; PT Patient Result 16.1 SECS
[2018-02-17] MEDS: MAGNESIUM OXIDE 400 MG TABLET PO SCH (10:38)
[2018-02-17] MEDS: CETIRIZINE 10 MG TABLET PO SCH (10:39)
[2018-02-17] MEDS: METOPROLOL SUCCINATE XL 25 MG TABLET PO SCH (10:39)
[2018-02-17] MEDS: PANTOPRAZOLE 40 MG TABLET PO SCH (10:39)
[2018-02-17] MEDS: MULTIVITAMIN (CENTRUM) TABLET PO SCH (10:39)
[2018-02-17] MEDS: ASCORBIC ACID 500 MG TABLET PO SCH (10:39)
[2018-02-17] MEDS: TRIAMTERENE/HCTZ 37.5-25 MG CAPSULE PO SCH (10:39)
[2018-02-17] MEDS: DILTIAZEM CD 180 MG CAPSULE PO SCH (10:39)
[2018-02-17] MEDS: CEFTAROLINE 600 MG in SODIUM CHLORIDE 0.9% 100 ML IV SCH ×2 (10:40→10:49)
[2018-02-17] MEDS: SODIUM CHLORIDE 0.45% 1,000 ML IV SCH (10:44)
[2018-02-17] MEDS ORDERED: WARFARIN 7.5 MG TABLET PO ONE (10:58)
[2018-02-17] MEDS: WARFARIN 5 MG TABLET PO SCH (21:00)
[2018-02-17] MEDS: ZALEPLON 5 MG CAPSULE PO PRN (21:08)
[2018-02-18] MEDS: ENOXAPARIN 120 MG/0.8 ML SYRINGE SUBCUT SCH ×2 (00:11→12:02)
[2018-02-18] MEDS: MAGNESIUM OXIDE 400 MG TABLET PO SCH (08:46)
[2018-02-18] MEDS: TRIAMTERENE/HCTZ 37.5-25 MG CAPSULE PO SCH (08:46)
[2018-02-18] MEDS: CETIRIZINE 10 MG TABLET PO SCH (08:46)
[2018-02-18] MEDS: MULTIVITAMIN (CENTRUM) TABLET PO SCH (08:46)
[2018-02-18] MEDS: DILTIAZEM CD 180 MG CAPSULE PO SCH (08:47)
[2018-02-18] MEDS: METOPROLOL SUCCINATE XL 25 MG TABLET PO SCH (08:47)
[2018-02-18] MEDS: ASCORBIC ACID 500 MG TABLET PO SCH (08:47)
[2018-02-18] MEDS: PANTOPRAZOLE 40 MG TABLET PO SCH (08:47)
[2018-02-18] MEDS ORDERED: WARFARIN 5 MG TABLET PO SCH (09:30)
[2018-02-18] MEDS: WARFARIN 5 MG TABLET PO SCH (09:58)
[2018-02-18] MEDS: ZALEPLON 5 MG CAPSULE PO PRN (19:23)
[2018-02-19 05:40] LABS: INR 1.9; PT Patient Result 20.1 SECS
[2018-02-19 07:40] VITALS: BP 130/61
[2018-02-19] MEDS: DILTIAZEM CD 180 MG CAPSULE PO SCH (08:20)
[2018-02-19] MEDS: TRIAMTERENE/HCTZ 37.5-25 MG CAPSULE PO SCH (08:20)
[2018-02-19] MEDS: METOPROLOL SUCCINATE XL 25 MG TABLET PO SCH (08:21)
[2018-02-19] MEDS: ASCORBIC ACID 500 MG TABLET PO SCH (08:21)
[2018-02-19] MEDS: PANTOPRAZOLE 40 MG TABLET PO SCH (08:21)
[2018-02-19] MEDS: MULTIVITAMIN (CENTRUM) TABLET PO SCH (08:23)
[2018-02-19] MEDS: MAGNESIUM OXIDE 400 MG TABLET PO SCH (08:23)
[2018-02-19] MEDS: WARFARIN 5 MG TABLET PO SCH (08:23)
[2018-02-19] MEDS: CETIRIZINE 10 MG TABLET PO SCH (08:24)
[2018-02-23] MEDS ORDERED: WARFARIN 7.5 MG TABLET PO SCH (09:00)
== END 2018-02-19 11:33 | disposition home or self-care (01) | DRG 556 ==
LOC: N.ED 12:54 → N.EDINP 12:54 → N.5E 19:37 → SUATTDRO 02-15 09:25
PROVIDERS: ADMIT Internal Medicine; ATTEND Internal Medicine

== ENCOUNTER 2019-03-05 07:00 | Inpatient (IN) ==
[2019-03-05] MEDS ORDERED: PROMETHAZINE 25 MG TABLET PO PRN (07:01)
[2019-03-05] MEDS ORDERED: diphenhydrAMINE CAP 25 MG CAPSULE PO PRN (07:01)
[2019-03-05] MEDS ORDERED: MAGNESIUM SULF RIDER 2 GM in PREMIX 1 EACH IV PRN (07:01)
[2019-03-05] MEDS ORDERED: BISACODYL 5 MG TABLET PO PRN (07:01)
[2019-03-05] MEDS ORDERED: ONDANSETRON 4 MG/2 ML VIAL IV PRN (07:01)
[2019-03-05] MEDS ORDERED: POTASSIUM CHLORIDE 20 MEQ TABLET PO PRN (07:01)
[2019-03-05] MEDS ORDERED: DOCUSATE SODIUM 100 MG CAPSULE PO PRN (07:01)
[2019-03-05] MEDS ORDERED: ZALEPLON 5 MG CAPSULE PO PRN (07:01)
[2019-03-05] MEDS ORDERED: guaiFENesin/DM ER 600-30 MG TABLET PO PRN (07:01)
[2019-03-05] MEDS ORDERED: MAGNESIUM SULF RIDER 4 GM in PREMIX 1 EACH IV PRN (07:01)
[2019-03-05] MEDS ORDERED: ACETAMINOPHEN 325 MG TABLET PO PRN (07:01)
[2019-03-05 08:42] LABS: Basophils # 0.1 10*3/uL (0.0-0.2); Basophils % 0.8 % (0.0-0.8); Eosinophils # 0.1 10*3/uL (0.0-0.87); Hematocrit 40.7 VOL% (42.0-52.0); Hemoglobin 13.4 GM/DL (14.0-18.0); Immature Granulocytes % 0.7 %; Immature Granulocytes Absolute 0.05 #; Mean Corpuscular HGB Conc 32.9 GM/DL (32-36); Mean Corpuscular Volume 97.4 FL (87-102); Mean Platelet Volume 10.3 FL (9.6-12.0); Monocytes % 10.4 % (1.7-12.7); Neutrophils % 74.1 % (38.7-73.9); Platelet Count 169 T/CUMM (130-400); Red Blood Count 4.18 MC/CUMM (3.8-5.5); Red Cell Distribution Width 13.3 % (9.3-17.3); White Blood Count 7.7 T/CUMM (4-12)
[2019-03-05 09:02] LABS: INR 2.7
[2019-03-05 09:04] LABS: Albumin 3.6 G/DL (3.4-5.0); Bilirubin,Total 0.7 MG/DL (0.2-1.0); Calcium 8.5 MG/DL (8.5-10.1); Osmolality,Calculated 274.8 MOS/KG (273-304); Total Protein 7.2 G/DL (6.4-8.3)
[2019-03-05 09:09] LABS: Thyroid Stimulating Hormone 1.1 uIU/ml (0.358-3.74)
[2019-03-05] MEDS: SOTALOL 80 MG TABLET PO SCH ×2 (09:30→20:57)
[2019-03-05] MEDS: PANTOPRAZOLE 40 MG TABLET PO SCH (09:30)
[2019-03-05] MEDS ORDERED: TEMAZEPAM 15 MG CAPSULE PO PRN (10:03)
[2019-03-05] MEDS ORDERED: CELECOXIB 50 MG PO PRN (10:03)
[2019-03-05] MEDS ORDERED: ALUMINUM/MAGNES/SIMETH MAX STR 30 ML UDCUP PO PRN (10:07)
[2019-03-05] MEDS ORDERED: DILTIAZEM CD 180 MG CAPSULE PO ONE (11:31)
[2019-03-05] MEDS: busPIRone 10 MG TABLET PO SCH (20:56)
[2019-03-05] MEDS: MAGNESIUM OXIDE 400 MG TABLET PO SCH (20:57)
[2019-03-05] MEDS: ASCORBIC ACID 500 MG TABLET PO SCH (20:57)
[2019-03-05] MEDS ORDERED: VITAMINS LIPOTROPICS PO SCH (21:00)
[2019-03-06 05:39] LABS: Basophils # 0.1 10*3/uL (0.0-0.2); Basophils % 0.9 % (0.0-0.8); Eosinophils # 0.2 10*3/uL (0.0-0.87); Eosinophils % 2.5 % (0.00-10.9); Hemoglobin 12.6 GM/DL (14.0-18.0); Immature Granulocytes % 0.7 %; Immature Granulocytes Absolute 0.05 #; Lymphocytes # 1.3 10*3/uL (1.4-4.0); Lymphocytes % 17.4 % (21.2-54.2); Mean Corpuscular HGB Conc 32.3 GM/DL (32-36); Mean Corpuscular Volume 97.5 FL (87-102); Mean Platelet Volume 10.6 FL (9.6-12.0); Monocytes % 10.7 % (1.7-12.7); Neutrophils % 67.8 % (38.7-73.9); Platelet Count 150 T/CUMM (130-400); Red Cell Distribution Width 13.2 % (9.3-17.3); White Blood Count 7.6 T/CUMM (4-12)
[2019-03-06 05:57] LABS: Albumin 3.1 G/DL (3.4-5.0); Bilirubin,Total 0.8 MG/DL (0.2-1.0); Calcium 8.4 MG/DL (8.5-10.1); Osmolality,Calculated 279.5 MOS/KG (273-304); Total Protein 6.5 G/DL (6.4-8.3)
[2019-03-06] MEDS ORDERED: SODIUM CHLORIDE 0.9% 1,000 ML IV SCH (07:00)
[2019-03-06] MEDS: MAGNESIUM OXIDE 400 MG TABLET PO SCH (08:08)
[2019-03-06] MEDS: ASCORBIC ACID 500 MG TABLET PO SCH (08:12)
[2019-03-06] MEDS: PANTOPRAZOLE 40 MG TABLET PO SCH (08:13)
[2019-03-06] MEDS: busPIRone 10 MG TABLET PO SCH (08:16)
[2019-03-06] MEDS: SOTALOL 80 MG TABLET PO SCH (08:17)
[2019-03-06 08:19] VITALS: BP 180/87
[2019-03-06] MEDS ORDERED: WARFARIN 5 MG TABLET PO SCH (09:00)
[2019-03-06] MEDS ORDERED: MULTIVITAMIN (CENTRUM) TABLET PO SCH (09:00)
[2019-03-06] MEDS ORDERED: NON-FORMULARY MEDICATION (Magnesium Oxide 400 MG) PO SCH (09:00)
[2019-03-06] MEDS ORDERED: MELOXICAM 7.5 MG TABLET PO SCH (09:00)
[2019-03-06] MEDS ORDERED: DILTIAZEM CD 180 MG CAPSULE PO SCH (09:00)
[2019-03-06] MEDS ORDERED: CETIRIZINE 10 MG TABLET PO SCH (09:00)
[2019-03-06] MEDS ORDERED: POTASSIUM CHLORIDE 20 MEQ TABLET PO SCH (09:00)
[2019-03-06] MEDS ORDERED: TRIAMTERENE/HCTZ 37.5-25 MG CAPSULE PO SCH (09:00)
[2019-03-08] MEDS ORDERED: WARFARIN 5 MG TABLET PO SCH (09:00)
== END 2019-03-06 12:00 | disposition home or self-care (01) | DRG 310 ==
LOC: N.CC 07:51 → N.TELEN 14:40
PROVIDERS: ADMIT Internal Medicine Interventional Cardiology; ATTEND Internal Medicine Interventional Cardiology